=== PATIENT | female | born 1955 | race Caucasian/White ===

== ENCOUNTER → 2016-11-18 | Outpatient (CLI) | payer OTHER ==
[~2016-11-18] MED LIST: BP MEDICATION PO; DIOVAN HCT 11 TABLE1 PO; EFFEXOR XR150 MG PO; ENDOCET 5-3251 EACH PO; FAMOTIDINE40 MG PO; GABAPENTIN100 MG PO; GABAPENTIN300 MG PO; IMITREX50 MG PO; KADIAN10 MG PO; LEXAPRO; LISINOPRIL; LISINOPRIL20 MG PO; LOVASTATIN20 MG PO; MELOXICAM7.5 MG PO; METFORMIN HCL1000 MG PO; METFORMIN HCL500 MG PO; NEXIUM40 MG PO; TIZANIDINE HCL4 M1 PO; TOPIRAMATE100 MG PO; TRICOR145 MG PO; VENLAFAXINE HCL75 M3 PO; VITAMIN D2000 UNIT PO; ZOCOR40 MG PO
== END | disposition home or self-care (01) ==
LOC: RAD 11-16 10:00
DX: N28.89 Other specified disorders of kidney and ureter (principal); R94.4 Abnormal results of kidney function studies; E11.9 Type 2 diabetes mellitus without complications
CPT/HCPCS: 76770

== ENCOUNTER → 2016-12-16 | Outpatient (CLI) | payer OTHER | END | disposition home or self-care (01) | LOC: RAD 15:43 | DX: I73.9 Peripheral vascular disease, unspecified (principal) | CPT/HCPCS: 70450 ==

== ENCOUNTER → 2016-12-29 | Outpatient (CLI) | payer OTHER | END | disposition home or self-care (01) | LOC: RAD 16:35 | DX: M47.892 Other spondylosis, cervical region (principal); G43.909 Migraine, unspecified, not intractable, without status migrainosus | CPT/HCPCS: 72052 ==

== ENCOUNTER 2017-02-01 10:36 | Day surgery (SDC) | payer OTHER ==
[~2017-02-01] VITALS: Ht 165.1 cm; Wt 85.3 kg
[~2017-02-01 10:36] MED LIST changes: +AMARYL2 MG PO; +BUSPAR15 MG PO; +CRESTOR10 MG PO; -DIOVAN HCT 11 TABLE1 PO; +DIOVAN HCT 31 TABLE1 PO; -ENDOCET 5-3251 EACH PO; +ENDOCET 7.5-321 EACH PO; +FLEXERIL10 MG PO; +GLUCOPHAGE1000 MG PO; +INDERAL40 MG PO; +JANUVIA100 MG PO; -METFORMIN HCL500 MG PO; +PROTONIX40 MG PO; +RELPAX40 MG PO; -VITAMIN D2000 UNIT PO; +VITAMIN D34000 UNIT PO
[2017-02-01 11:31] LABS: POINT-OF-CARE METER ID UU13113694
== END 2017-02-01 12:37 | disposition home or self-care (01) ==
LOC: PAIN 10:36 → SDC 11:00 → PAIN 12:37
PROVIDERS: Anesthesiology Pain Medicine
DX: M47.812 Spondylosis without myelopathy or radiculopathy, cervical region (principal); M47.26 Other spondylosis with radiculopathy, lumbar region; M51.16 Intervertebral disc disorders with radiculopathy, lumbar region; M48.06 Spinal stenosis, lumbar region; G89.29 Other chronic pain; Z79.891 Long term (current) use of opiate analgesic; E11.9 Type 2 diabetes mellitus without complications; I10 Essential (primary) hypertension; K21.9 Gastro-esophageal reflux disease without esophagitis; M10.9 Gout, unspecified; Z88.2 Allergy status to sulfonamides
CPT/HCPCS: 82948; J1030; J2250; J3010; S0020

== ENCOUNTER 2017-02-08 07:37 | Day surgery (SDC) | payer OTHER ==
[~2017-02-08] VITALS: Ht 165.1 cm; Wt 85.3 kg
[2017-02-08 08:12] LABS: POINT-OF-CARE METER ID UU13113694
== END 2017-02-08 09:15 | disposition home or self-care (01) ==
LOC: PAIN 07:37 → SDC 08:00 → PAIN 08:00
PROVIDERS: Anesthesiology Pain Medicine
DX: M47.26 Other spondylosis with radiculopathy, lumbar region (principal); M51.16 Intervertebral disc disorders with radiculopathy, lumbar region; G89.29 Other chronic pain; M79.1 Myalgia; M48.06 Spinal stenosis, lumbar region; M47.812 Spondylosis without myelopathy or radiculopathy, cervical region; K21.9 Gastro-esophageal reflux disease without esophagitis; I10 Essential (primary) hypertension; M53.3 Sacrococcygeal disorders, not elsewhere classified; E11.9 Type 2 diabetes mellitus without complications; E78.5 Hyperlipidemia, unspecified; F41.8 Other specified anxiety disorders; Z79.84 Long term (current) use of oral hypoglycemic drugs; Z79.891 Long term (current) use of opiate analgesic
CPT/HCPCS: 82948; J1030; S0020

== ENCOUNTER 2017-04-25 17:31 | Emergency (ER) | payer OTHER ==
[~2017-04-25] VITALS: Ht 165.1 cm; Wt 88.7 kg
[2017-04-25] MEDS ORDERED: NAPROSYN500 MG PO (21:28)
[2017-04-25] MEDS ORDERED: KEFLEX500 MG PO (21:28)
[2017-04-25] MEDS ORDERED: NORCO 5/3251 TABLET PO (21:28)
[2017-04-25 21:46] VITALS: BP 163/97
== END 2017-04-25 21:47 | disposition home or self-care (01) ==
LOC: EME 17:31
DX: S61.213A Laceration without foreign body of left middle finger without damage to nail, initial encounter (principal); S62.633B Displaced fracture of distal phalanx of left middle finger, initial encounter for open fracture; W29.0XXA Contact with powered kitchen appliance, initial encounter; Z23 Encounter for immunization; Z88.2 Allergy status to sulfonamides; Z88.8 Allergy status to other drugs, medicaments and biological substances
CPT/HCPCS: 73130; 99281; 99284